=== PATIENT | male | born 1970 | race Caucasian/White ===

== ENCOUNTER 2018-03-20 08:49 | Emergency (ER) | payer OTHER ==
[~2018-03-20] VITALS: Ht 188 cm; Wt 103.4 kg
[2018-03-20] MEDS ORDERED: LIPITOR20 MG (09:01)
[2018-03-20] MEDS ORDERED: KETO10TA2 PO (11:44)
== END 2018-03-20 12:04 | disposition home or self-care (01) ==
LOC: ER 08:49
DX: M25.511 Pain in right shoulder (principal)